=== PATIENT | male | born 1970 | race Caucasian/White ===

== ENCOUNTER 2020-03-07 14:51 | Emergency (ER) | payer OTHER ==
[~2020-03-07] VITALS: Ht 177.8 cm; Wt 95.3 kg
[2020-03-07] MEDS ORDERED: LIDOCAINE HCL 1% LOCAL INJ 20 ML VIAL INJ ONE (15:00)
[2020-03-07] MEDS ORDERED: TETANUS/DIPHTHERIA TOX ADULT 0.5 ML SYR IM ONE (15:00)
[2020-03-07] MEDS ORDERED: TETANUS/DIPHTHERIA TOX ADULT 0.5 ML SYR ONE (15:21)
[2020-03-07] MEDS ORDERED: ULTRAM 50MG50 MG PO (15:38)
[2020-03-07] MEDS ORDERED: KEFLEX250 MG PO (15:38)
[2020-03-07] MEDS ORDERED: NEOMYCIN/POLYMYX/BACITR OINT 0.9 GM PKT ONE (15:44)
== END 2020-03-07 15:53 | disposition home or self-care (01) ==
LOC: FSED 15:05
DX: S61.217A Laceration without foreign body of left little finger without damage to nail, initial encounter (principal); W45.8XXA Other foreign body or object entering through skin, initial encounter; I10 Essential (primary) hypertension
CPT/HCPCS: 90714; 99283

== ENCOUNTER 2020-09-20 15:47 | Emergency (ER) | payer OTHER ==
[~2020-09-20] VITALS: Ht 177.8 cm; Wt 95.3 kg
[~2020-09-20 15:47] MED LIST: KEFLEX250 MG PO; ULTRAM 50MG50 MG PO
[2020-09-20] MEDS ORDERED: CEFTRIAXONE 1 GM in SODIUM CHLORIDE 0.9% 50ML 50 ML IV ONE (16:45)
[2020-09-20] MEDS ORDERED: CEFTRIAXONE 1 GM VIAL ONE (16:58)
[2020-09-20] MEDS ORDERED: SODIUM CHLORIDE 0.9% 50ML 50 ML ONE (17:00)
[2020-09-20] MEDS ORDERED: ZITHROMAX250 MG PO (18:44)
[2020-09-20] MEDS ORDERED: CEFDINIR300 MG PO (18:45)
[2020-09-20] MEDS ORDERED: SODIUM CHLORIDE 0.9% 500ML 500 ML IV ONE (18:45)
[2020-09-20] MEDS ORDERED: DECADRON6 MG PO (18:46)
[2020-09-20] MEDS ORDERED: VENTOLIN HFA18 GM INH (18:47)
[2020-09-20] MEDS ORDERED: IBUPROFEN600 MG PO (18:48)
[2020-09-20] MEDS ORDERED: SODIUM CHLORIDE 0.9% 500ML 500 ML ONE (18:51)
[2020-09-20 19:00] VITALS: BP 142/88
== END 2020-09-20 19:00 | disposition home or self-care (01) ==
LOC: FSED 18:25
DX: U07.1 COVID-19 (principal); J12.82 Pneumonia due to coronavirus disease 2019; R09.3 Abnormal sputum
CPT/HCPCS: 71046; 80048; 80076; 81003; 85025; 87040; 87400; 99284; J0456; J0696; J7040; U0002

== ENCOUNTER 2020-09-22 12:08 | Emergency (ER) | payer OTHER ==
[~2020-09-22] VITALS: Ht 177.8 cm; Wt 95.3 kg
[~2020-09-22 12:08] MED LIST changes: +CEFDINIR300 MG PO; +DECADRON6 MG PO; +IBUPROFEN600 MG PO; +VENTOLIN HFA18 GM INH; +ZITHROMAX250 MG PO
[2020-09-22] MEDS ORDERED: BAMLANIVIMAB / ETESEVIMAB 2,100 MG in SODIUM CHLORIDE 0.9% 250ML 250 ML IV ONE (13:00)
== END 2020-09-22 15:51 | disposition home or self-care (01) ==
LOC: ER 12:17
DX: U07.1 COVID-19 (principal); I10 Essential (primary) hypertension
CPT/HCPCS: 99284; J7050